=== PATIENT | male | born 1995 | race Caucasian/White ===

== ENCOUNTER 2017-05-09 04:02 | Emergency (ER) | payer OTHER ==
[~2017-05-09] VITALS: Ht 190.5 cm; Wt 77.3 kg
[2017-05-09 04:08] VITALS: BP 145/76; PULSE 145; RESP 16; O2SAT 99
--- NOTE | 2017-05-09 04:09 | ED.REPORT ---
HPI-Dental/Mouth Prob Date of Service May 09, 2017 ED Provider: Dr. Vikas Bradley M.D. The patient is a healthy 21 year old male who presents to the ED with right- sided dental pain onset yesterday. The patient woke up from a nap this evening and found the right side of his face swollen as well. He denies throat swelling , difficulty swallowing, trouble breathing, fever, or other symptoms. The patient has used salt-water rinses and Orajel treatments at home, with no relief. Nursing Notes Stated Complaint: SWOLLEN FACE Chief Complaint: Dental Nursing Notes Reviewed: Yes Allergies: Coded Allergies: No Known Allergies (Unverified , 05/09/17) General Time Seen by MD: 04:08 Chief Complaint Tooth pain (Right-sided) Hx Obtained From: Patient Arrived By: Walk-in Onset Occurred: Yesterday Symptom Duration: Since onset Location: : Tooth upper R molar Quality: Painful Severity: Current: Moderate Severity: Maximum: Moderate Pertinent Negative: Relieved by nothing Recent Healthcare: No recent doctor visit Past Medical History Past Medical History None reported Past Surgical History None reported Smoking History Current Every Day Smoker Social History Drug Use: THC Ambulatory Status Independent Review of Systems Review of Systems Note: + Right-sided facial swelling - Difficulty swallowing Constitutional: Denies: Fever Ears / Nose / Throat: Reports: Toothache (Right-sided), Denies: Throat swelling Respiratory: Denies: Non-productive cough, Shortness of breath, Wheezing GI: Denies: Diarrhea, Vomiting Complete sys rev & neg: except as marked. Physical Exam Initial Vital Signs Vital Signs (First) Date Time Temp Pulse Resp B/P Pulse Ox O2 Delivery O2 Flow Rate FiO2 05/09/17 04:08 37.0 145 16 145/76 99 Room Air Initial VS: Reviewed, Vital signs abnormal Head / Eyes: Atraumatic, Normocephalic Respiratory: No respiratory distress Skin: Warm, Dry, No cyanosis Neurologic: Alert, Oriented, Nonfocal Psychiatric: Mood/affect normal, Behavior normal, Normal thought content ENT: Airway patent, Mucous membranes moist Dental / Gums: Positive: Dental abscess (Associated with teeth 2 and 3), Negative: Decay extensive, Decay single tooth Neck: Supple, Full range of motion General/Constitutional: Awake, Alert, No acute distress Interpretation & Diagnostics Lab Results Interpretation Result Diagram: 05/09/1742105/09/17421 Test 05/09/17 04:22 White Blood Count 9.3th/mm3 (3.8-10.1) Red Blood Count 5.05mil/mm3 (4.40-5.80) Hemoglobin 15.1g/dL (13.8-17.2) Hematocrit 46.1% (41.0-50.0) Mean Corpuscular Volume 91.3fL (81-100) Mean Corpuscular Hemoglobin 29.9pg (27.0-35.0) Mean Corpuscular Hemoglobin Concent 32.8% (32.0-37.0) Red Cell Distribution Width 12.4% (12.3-15.4) Platelet Count 230bil/L (150-400) Neutrophils (%) (Auto) 74.3% (40-74) Lymphocytes (%) (Auto) 16.7% (14-46) Monocytes (%) (Auto) 7.6% (4-12) Eosinophils (%) (Auto) 1.1% (0-5) Basophils (%) (Auto) 0.2% (0-3) Sodium Level 140mEq/L (134-144) Potassium Level 4.0mEq/L (3.5-5.2) Chloride Level 101mEq/L (97-108) Carbon Dioxide Level 27mmol/L (18-29) Blood Urea Nitrogen 11mg/dL (6-20) Creatinine 0.81mg/dL (0.76-1.27) Estimat Glomerular Filtration Rate 127mL/min (>59) Glucose Level 74mg/dL (60-99) Lactic Acid Level 1.7mmol/L (0.4-2.0) Calcium Level 9.8mg/dL (8.5-10.1) Magnesium Level 1.9mg/dL (1.6-2.6) Total Bilirubin 0.5mg/dL (0.0-1.2) Aspartate Amino Transf (AST/SGOT) 17U/L (0-50) Alanine Aminotransferase (ALT/SGPT) 16U/L (0-44) Alkaline Phosphatase 96U/L (25-150) Total Protein 8.1g/dL (6.4-8.4) Albumin 4.6g/dL (3.4-5.0) Lab values outside NL range: no clinical significance. Re-Eval/Medical Decision Med Decision/Clinical Course 21-year-old male with a right facial abscess, presumably dental in origin. He is tachycardic and has felt feverish. IV was started and labs were drawn to include blood cultures normal white blood count and a normal lactic acid. He was given a dose of Zosyn. Facial CT scan is pending. His care is being turned over at change of shift to Dr. Kelsie Arshad. Re-Evaluation/Progress : Time of Eval: 04:15 Patient Status: Condition improved Re-Evaluation/Progress Note: Discussed with patient diagnosis and plan for labs and CT with transfer of care to Dr. Arshad at change of shift. Patient agrees with plan for care and all questions were addressed. Counseled Regarding: Diagnosis Discharge & Departure Shift Change Sign-Out Patient Care Transferred: Yes (Dr. Arshad) Discussed Complaint(s): Yes Laboratory Evaluation: Lab evaluation discussed Imaging Studies: Ordered, not yet done Response to Therapy: Improved Primary Impression: Dental abscess Care Transferred to: Dr. Arshad Care Transferred at: 06:00 Zeferinoibe Attestation Portions of this note were transcribed by Tricia Willis. I, Dr. Bradley, personally performed the history, physical exam, and medical decision-making; I reviewed and confirmed the accuracy of the information in the transcribed note. Signed by: Froilan Kang, 05/09/2017, 05:57 Vikas Bradley MD May 09, 2017 04:09 TRICIA WILLIS May 09, 2017 04:23
[2017-05-09] MEDS ORDERED: 0.9% Sodium Chloride 1,000 ML IV ONE (04:17)
[2017-05-09] MEDS ORDERED: Piperacillin-Tazo 3.375 Gm Inj 3.375 GM in Dextrose 5% Minibag Plus 50 ML IV ONE (04:20)
[2017-05-09] MEDS ORDERED: Ondansetron 2 mg/mL 2 mL Inj IV PRN (04:20)
[2017-05-09 04:32] LABS: BASOPHILS % (AUTO) 0.2 % (0-3); EOSINOPHILS % (AUTO) 1.1 % (0-5); MONOCYTES % (AUTO) 7.6 % (4-12); Mean Corpuscular Hemoglobin 29.9 pg (27.0-35.0); Mean Corpuscular Volume 91.3 fL (81-100); NEUTROPHILS % (AUTO) 74.3 % (40-74); Platelet Count 230 bil/L (150-400)
[2017-05-09 04:53] LABS: Magnesium 1.9 mg/dL (1.6-2.6)
[2017-05-09 06:25] VITALS: BP 115/52; PULSE 100; RESP 14; O2SAT 97
[2017-05-09] MEDS ORDERED: AMOX500T2 PO (06:43)
[2017-05-09] MEDS ORDERED: IBUP-1827 PO (06:43)
[2017-05-09] MEDS ORDERED: OXYC1TAB24 PO (06:43)
[2017-05-09 06:52] VITALS: BP 105/45; PULSE 105; RESP 18; O2SAT 99
--- NOTE | 2017-05-09 08:25 | DRSVH ---
PROCEDURE: CT FACE WITH CONTRAST ([id number]) INDICATIONS: abscess TECHNIQUE: After the administration of intravenous contrast, 3.0 mm axial sections acquired from the mid-neck to the frontal sinuses, with coronal reformatting. For radiation dose reduction, the following was use d: automated exposure control. COMPARISON: None. FINDINGS: Image quality: Excellent. Soft tissues: Right facial soft tissue swelling adjacent to the right mandible and right maxilla. No abscess identified. No enlarged lymph nodes. Vascular: Visualized vascular structures appear patent throughout. Bony vascular foramina and canal s appear normal. Bones: Facial bones appear intact, without fractures, erosions, or destruction. Visualized portions of the skull base and auditory canals also appear normal. Numerous dental caries are noted. Sinuses: Mucosal thickening is causing complete opacification of the right maxillary sinus. The right osteomeatal unit is opacified. Right maxillary sinus is small in size relative to the left which cou ld be due to congenital hypoplasia versus silent sinus syndrome; please correlate with clinical data. Mastoid air cells are aerated. IMPRESSION: 1. Soft tissue swelling involving the right facial soft tissues adjacent to the right maxilla and rig ht mandible concerning for cellulitis. 2. No abscess. 3. Right maxillary sinus mucosal thickening. The right maxillary sinus is diminished in size which co uld be due to congenital hypoplasia versus silent sinus syndrome. Please correlate with clinical data . 4. Numerous dental caries. Dictated by: Fina Mark MD, PhD on 05/09/2017 at 8:15 Approved by: Fina Mark MD, PhD on 05/09/2017 at 8:23
== END 2017-05-09 06:55 | disposition home or self-care (01) ==
LOC: SED 04:02
DX: K04.7 Periapical abscess without sinus (principal); F17.200 Nicotine dependence, unspecified, uncomplicated
CPT/HCPCS: 36415; 70487; 80053; 83605; 83735; 85025; 87040; 96365; 96375; 99285; J1885; J2405; J2543; J7030; Q9967

== ENCOUNTER 2017-08-18 00:49 | Emergency (ER) | payer OTHER ==
[~2017-08-18] VITALS: Ht 190.5 cm; Wt 77.3 kg
[~2017-08-18 00:49] MED LIST: AMOX500T2 PO; IBUP-1827 PO; OXYC1TAB24 PO
[2017-08-18 00:56] VITALS: BP 143/83; PULSE 106; RESP 12; O2SAT 100
--- NOTE | 2017-08-18 01:02 | ED.REPORT ---
HPI-Dental/Mouth Prob Date of Service Aug 18, 2017 ED Provider: Pt is an otherwise healthy 22 year old male who presents to the ED complaining of worsening right-sided dental pain onset 05/08/17. He c/o associated dental swelling. He denies any other symptoms. Pt presented to the ED on 05/09/17 with right-sided dental pain and swelling. The pt was discharged with a diagnosis of dental abscess. He was advised to call Dr. Bedolla, whom he typically sees for dental care, for an appointment and return if his symptoms worsen. Per pt, he has called [facility] for a dentist appointment and is currently on a waiting list. He does not know when he will be seen yet. Nursing Notes Stated Complaint: INFECTED TOOTH Chief Complaint: Dental Nursing Notes Reviewed: Yes Allergies: Coded Allergies: No Known Allergies (Unverified , 05/09/17) Scheduled Amoxicillin (Amoxicillin) 500 Mg Tablet 500 MG PO TID Scheduled PRN Ibuprofen (Ibuprofen) 600 Mg Tablet 600 MG PO QID PRN PRN For Pain oxyCODONE-Acetaminophen 5-325 mg (oxyCODONE-Acetaminophen 5-325 mg) 1 Each Tablet 1 TAB PO Q6H PRN PRN For Pain General Time Seen by MD: 01:02 Chief Complaint Tooth pain Hx Obtained From: Patient Arrived By: Walk-in Onset Occurred: More than a week ago... (3 months) Symptom Duration: Since onset Quality: Painful Radiation: : Does not radiate Severity: Current: Moderate Severity: Maximum: Moderate Recent Healthcare: No recent doctor visit, No recent hospitalization Similar Sx Previous: Yes Past Medical History Past Medical History Notes: Pt presented to the ED on 05/09/17 with right-sided dental pain and swelling. The pt was discharged with a diagnosis of dental abscess. He was advised to call Dr. Bedlola, whom he typically sees for dental care, for an appointment and return if his symptoms worsen. Past Medical History Dental abscess Past Surgical History None reported Smoking History Current Every Day Smoker Social History Not homeless Alcohol Use: Denies alcohol use Drug Use: THC Ambulatory Status Independent Review of Systems Reports: Dental pain Reports: Dental swelling Complete sys rev & neg: except as marked. Physical Exam Initial Vital Signs Vital Signs (First) Date Time Temp Pulse Resp B/P Pulse Ox O2 Delivery O2 Flow Rate FiO2 08/18/17 00:56 36.8 106 12 143/83 100 Room Air Initial VS: Reviewed Head / Eyes: Atraumatic, Normocephalic Respiratory: Breath sounds normal, Clear to auscultation, No respiratory distress Extremities: Vascular intact, Neuro intact Skin: Warm, Dry, No cyanosis Neurologic: Alert, Oriented, Nonfocal Psychiatric: Mood/affect normal, Behavior normal ENT: Airway patent Dental caries with buccal cellulitis. No abscess. Neck: Atraumatic, Full range of motion General/Constitutional: Awake, Alert Re-Eval/Medical Decision Source of Hx: Old records Re-Evaluation/Progress : Time of Eval: 01:00 Re-Evaluation/Progress Note: Informed pt of plan for treatment with naprosyn, tramadol, and augmentin with pending discharged. Pt understands and agrees with plan. F/U instructions and RTER warnings given. All questions addressed. Counseled Regarding: Diagnosis, Need for follow-up, When/why to return to ED Discharge & Departure Primary Impression: Cellulitis of buccal space of mouth Additional Impression: Pain, dental Disposition: Home Discharge Condition All VS Reviewed: Yes Condition: Stable Patient Instructions: Cellulitis (ED), Dental Caries (ED) Additional Instructions: Augmentin 2x daily for 7 days. 1 Naprosyn every 12 hours as need for pain. Keep your follow-up appointment with the [facility] Return to the Emergency Department for any new or concerning symptoms. Referrals: NOPCP (PCP) [facility] Zeferinoibvalery Attestation Portions of this note were transcribed by Eula Perkins. I, Dr. Malhotra personally performed the history, physical exam and medical decision-making; I reviewed and confirmed the accuracy of the information in the transcribed note. Signed by : Froilan Estrada, 08/18/17. copies to: [facility] Christiano Malhotra DO Aug 18, 2017 01:02 Eula Koenig Aug 18, 2017 01:09
[2017-08-18] MEDS ORDERED: Amoxicillin-Clav 875-125 mg Tablet PO ONE (01:10)
== END 2017-08-18 01:31 | disposition home or self-care (01) ==
LOC: SED 00:49
DX: K12.2 Cellulitis and abscess of mouth (principal); K08.89 Other specified disorders of teeth and supporting structures; F17.200 Nicotine dependence, unspecified, uncomplicated